=== PATIENT | female | born 2000 | race Caucasian/White ===

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

== ENCOUNTER → 2021-05-24 | Outpatient (CLI) | payer OTHER | LOC: LAB 09:20 | DX: R76.8 Other specified abnormal immunological findings in serum (principal); M25.50 Pain in unspecified joint; R53.83 Other fatigue; R74.8 Abnormal levels of other serum enzymes | CPT/HCPCS: 36415; 82085; 82550; 83615; 83874 ==